=== PATIENT | female | born 1955 | race Caucasian/White ===

== ENCOUNTER 2019-06-05 20:54 | Emergency (ER) | payer MEDICARE, OTHER ==
[2019-06-05] MEDS: IBUPROFEN 200 MG TAB PO (22:19)
[2019-06-05] MEDS: METHYLPREDNISOLONE 125 MG INJ IM (22:19)
[2019-06-05] MEDS: LIDOCAINE 1% (MDV) 20 ML INJ SC (22:20)
[2019-06-05] MEDS: CEFTRIAXONE 1 GM INJ IM (22:20)
== END 2019-06-05 22:30 | disposition home or self-care (01) ==
LOC: FTE 20:54
DX: J02.0 Streptococcal pharyngitis (principal); H66.003 Acute suppurative otitis media without spontaneous rupture of ear drum, bilateral
CPT/HCPCS: 96372; 99284-25